=== PATIENT | female | born 1990 | race Native Hawaiian/Other Pacific Islander ===

== ENCOUNTER 2018-12-21 07:52 | Inpatient (IN) | payer MEDICAID ==
[2018-12-21] MEDS ORDERED: Sodium Chloride 0.9% 10 ML Syringe FLUSH PRN (08:01)
[2018-12-21] MEDS ORDERED: Lactated Ringers 1,000 ML IV ONE ×2 (09:00→13:50)
--- NOTE | 2018-12-21 09:08 | PN ---
DATE SEEN: 12/21/2018 SUBJECTIVE: This is a 28-year-old, G3, P2, who was EDC of 12/16, 41 weeks, here for induction. Group B negative. Repeat heart tones are reactive. Cervix is 2 to 3 posterior, -3, 80% effaced. ASSESSMENT: Postdates here for induction, group B negative. PLAN: We did an OB ultrasound for position to make sure the head was down and it was confirmed that it was down and placenta is out of the way to AROM, a little of bit of clear fluid, and we will proceed with a vaginal delivery. We will add Pitocin if we have to. /[id number] PE/FRANK
[2018-12-21] MEDS ORDERED: Calcium Carbonate 500 MG Tab.Chew PO PRN (09:48)
[2018-12-21] MEDS ORDERED: Lactated Ringers 1,000 ML IV SCH ×2 (10:30→14:45)
[2018-12-21] MEDS: Lactated Ringers 1,000 ML IV SCH ×2 (11:33→19:53)
[2018-12-21] MEDS ORDERED: Scopolamine 1.5 MG Transdermal Patch ONE (12:51)
[2018-12-21] MEDS ORDERED: Citric Acid/Sodium Citrate Solution 30 ML Cup ONE (12:51)
[2018-12-21] MEDS ORDERED: Citric Acid/Sodium Citrate Solution 30 ML Cup PO ONE (12:55)
[2018-12-21] MEDS ORDERED: Scopolamine 1.5 MG Transdermal Patch TOP ONE (12:56)
--- NOTE | 2018-12-21 13:01 | PCM.HP ---
<Louann Phan - Last Filed: 12/21/18 12:54> H&P History of Present Illness - General Date of Service: 12/21/18 Admit Problem/Dx: 28 year old, , female admitted to the hospital for induction of labor. She is 40w6d today. She has been feeling baby move. No leakage of fluid or bleeding. Afebrile. GBS negative. AROM at 0830 for clear fluid. Minimal variability with low grade late decelerations since arrival at 0800. Not responding to resuscitation with IV fluids or supplemental oxygen. Source of Information: Patient, Old Records History Limitations: Reports: No Limitations - Related Data Allergies/Adverse Reactions: Allergies Allergy/AdvReac Type Severity Reaction Status Date / Time No Known Allergies Allergy Verified 04/22/18 10:45 Home Medications: Home Meds Doxylamine Succinate [Unisom] 25 mg PO QID #60 tablet 04/22/18 [Rx] Pyridoxine HCl 25 mg PO QID #100 tablet 04/22/18 [Rx] Past Medical History Respiratory History: Reports: Asthma Other Respiratory History: has had asthma in past and has used inhalers Gastrointestinal History: Reports: Hemorrhoids, Other (See Below) Other Gastrointestinal History: heartburn with [employer] History: Reports: Other OB/BYN History: Psychiatric History: Reports: Anxiety - Past Surgical History Dermatological Surgical History: Reports: None Social & Family History - Family History Family Medical History: Noncontributory - Tobacco Use Smoking Status *Q: Former Smoker Packs/Tins Daily: 0.5 Used Tobacco, but Quit: Yes Month/Year Tobacco Last Used: 08/2108 Second Hand Smoke Exposure: Yes - Caffeine Use Caffeine Use: Reports: Coffee, Soda - Recreational Drug Use Recreational Drug Use: Yes Drug Use in Last 12 Months: Yes Recreational Drug Type: Reports: Marijuana/Hashish, Methamphetamine Recreational Drug Use Frequency: Not Used In Over 6 Months H&P Review of Systems - Review of Systems: Review Of Systems: See Below General: Reports: Other (feeling hungry ) HEENT: Reports: No Symptoms Pulmonary: Reports: No Symptoms Cardiovascular: Reports: No Symptoms Gastrointestinal: Reports: No Symptoms Genitourinary: Reports: No Symptoms Musculoskeletal: Reports: No Symptoms Skin: Reports: No Symptoms Psychiatric: Reports: Anxiety Neurological: Reports: No Symptoms Hematologic/Lymphatic: Reports: No Symptoms Exam - Exam Exam: See Below - Vital Signs Vital Signs: Last Vital Signs Temp 36.6 C 12/21/18 09:35 Pulse 87 12/21/18 11:04 Resp BP 142/89 H 12/21/18 09:35 Pulse Ox Weight: 174 lb - Exam Quality Assessment: Supplemental Oxygen General: Alert, Oriented HEENT: Mucosa Moist & Angostura, Pupils Equal, TMs Clear Neck: Supple, Trachea Midline Lungs: Clear to Auscultation, Normal Respiratory Effort Cardiovascular: Regular Rate, Regular Rhythm GI/Abdominal Exam: Normal Bowel Sounds, Soft, Non-Tender, Other ( abdomen) Back Exam: No: CVA Tenderness (R), CVA Tenderness (L) Extremities: Normal Inspection, No Pedal Edema Skin: Warm, Dry, Intact Neuro Extensive - Mental Status: Alert, Oriented x3 Psychiatric: Alert, Normal Affect, Anxious - Problem List (1) Intrauterine SNOMED Code(s): 09845422 ICD Code: Z34.90 - ENCNTR FOR SUPRVSN OF NORMAL , UNSP, UNSP TRIMESTER Status: Acute Current Visit: No Problem List Initiated/Reviewed/Updated: Yes Orders Last 24hrs: Active Orders 24 hr Category Date Time Status Admission Status [Patient Status] [ADT] Routine ADT 12/21/18 08:30 Active Patient Status [ADT] Routine ADT 12/21/18 08:01 Active Communication Order [RC] ASDIRECTED Care 12/21/18 08:01 Active Non Stress Test [RC] Click to Edit Care 12/21/18 08:01 Active Notify Provider Vital Signs [RC] PRN Care 12/21/18 08:05 Active Notify Provider [RC] PRN Care 12/21/18 08:01 Active Vital Signs [RC] PER UNIT ROUTINE Care 12/21/18 08:01 Active OB Ltd 1 or More Fetus [US] Routine Exams 12/21/18 08:06 Taken CBC WITH AUTO DIFF [HEME] Routine Lab 12/21/18 12:44 Ordered TYPE AND SCREEN [BBK] Routine Lab 12/21/18 12:44 Ordered Calcium Carbonate [Tums] Med 12/21/18 09:48 Active 1,000 mg PO Q2H PRN Lactated Ringers [Ringers, Lactated] 1,000 ml Med 12/21/18 11:31 Active IV ASDIRECTED Sodium Chloride 0.9% [Saline Flush] Med 12/21/18 08:01 Active 10 ml FLUSH ASDIRECTED PRN Peripheral IV Insertion Adult [OM.PC] Routine Oth 12/21/18 09:00 Ordered Saline Lock Insert [OM.PC] Routine Oth 12/21/18 08:01 Ordered Resuscitation Status Routine Resus Stat 12/21/18 08:01 Ordered Medication Orders Calcium Carbonate/Glycine (Tums) 1,000 mg PO Q2H PRN PRN Reason: Indigestion Last Admin: 12/21/18 10:53 Dose: 1,000 mg Lactated Ringer's (Ringers, Lactated) 1,000 mls @ 250 mls/hr IV ASDIRECTED CHANDU Last Admin: 12/21/18 11:33 Dose: 250 mls/hr Sodium Chloride (Saline Flush) 10 ml FLUSH ASDIRECTED PRN PRN Reason: Keep Vein Open Last Admin: 12/21/18 10:22 Dose: 10 ml 1. Reviewed our monitoring findings with the patient and her family. Discussed risks and benefits of . Will go ahead with this. <Bladimir Garza - Last Filed: 12/21/18 14:35> H&P History of Present Illness - General Admit Problem/Dx: Admission Diagnosis/Problem Admission Diagnosis/Problem and not yet delivered Exam - Vital Signs Vital Signs: Last Vital Signs Temp 97.8 F 12/21/18 09:35 Pulse 87 12/21/18 11:04 Resp BP 142/89 H 12/21/18 09:35 Pulse Ox - Patient Data Lab Results Last 24 hrs: Laboratory Results - last 24 hr 12/21/18 12/21/18 Range/Units 12:58 12:58 WBC 16.1 H (4.5-12.0) X10-3/uL RBC 3.49 (3.23-5.20) x10(6)uL Hgb 10.6 L (11.5-15.5) g/dL Hct 30.7 (30.0-51.3) % MCV 87.9 (80-96) fL MCH 30.5 (27.7-33.6) pg MCHC 34.6 (32.2-35.4) g/dL RDW 13.2 (11.5-15.5) % Plt Count 288 (125-369) X10(3)uL MPV 8.2 (7.4-10.4) fL Add Manual Diff Yes Neutrophils % (Manual) 88 H (46-82) % Lymphocytes % (Manual) 10 L (13-37) % Monocytes % (Manual) 1 L (4-12) % Eosinophils % (Manual) 1 (0-5) % Blood Type O POSITIVE Gel Antibody Screen Negative Result Diagrams: 12/21/18 12:58 - Problem List (1) distress SNOMED Code(s): 901622265 ICD Code: [id number] - Status: Acute Current Visit: Yes (2) Intrauterine SNOMED Code(s): 70506643 ICD Code: Z34.90 - ENCNTR FOR SUPRVSN OF NORMAL , UNSP, UNSP TRIMESTER Status: Acute Current Visit: No Problem List Initiated/Reviewed/Updated: Yes Orders Last 24hrs: Active Orders 24 hr Category Date Time Status Admission Status [Patient Status] [ADT] Routine ADT 12/21/18 08:30 Active Patient Status [ADT] Routine ADT 12/21/18 08:01 Active Communication Order [RC] ASDIRECTED Care 12/21/18 08:01 Active Communication Order [RC] ASDIRECTED Care 12/21/18 14:28 Active Communication Order [RC] ASDIRECTED Care 12/21/18 14:28 Active Communication Order [RC] ASDIRECTED Care 12/21/18 14:28 Active Non Stress Test [RC] Click to Edit Care 12/21/18 08:01 Active Intake and Output [RC] Q4HR Care 12/21/18 14:28 Active Notify Provider Vital Signs [RC] PRN Care 12/21/18 08:05 Active Notify Provider [RC] PRN Care 12/21/18 08:01 Active Oxygen Therapy [RC] PRN Care 12/21/18 14:28 Active Pasero Opioid Induced Sedation [RC] ASDIRECTED Care 12/21/18 14:28 Active Vital Signs [RC] PER UNIT ROUTINE Care 12/21/18 08:01 Active OB Ltd 1 or More Fetus [US] Routine Exams 12/21/18 08:06 Taken PATIENT RETYPE [BBK] Routine Lab 12/21/18 12:58 Results TYPE AND SCREEN [BBK] Routine Lab 12/21/18 12:58 Results Calcium Carbonate [Tums] Med 12/21/18 09:48 Active 1,000 mg PO Q2H PRN Ketorolac [Toradol] Med 12/21/18 14:27 Ordered 15 mg IVPUSH Q6H PRN Lactated Ringers [Ringers, Lactated] 1,000 ml Med 12/21/18 11:31 Active IV ASDIRECTED Morphine Med 12/21/18 14:27 Ordered 2 mg IVPUSH Q1H PRN Nalbuphine [Nubain] Med 12/21/18 14:27 Ordered 10 mg IVPUSH Q1H PRN Naloxone [Narcan] Med 12/21/18 14:27 Ordered 0.1 mg IVPUSH ONETIME PRN Ondansetron [Zofran] Med 12/21/18 14:27 Ordered 4 mg IVPUSH Q6H PRN Sodium Chloride 0.9% [Saline Flush] Med 12/21/18 08:01 Active 10 ml FLUSH ASDIRECTED PRN diphenhydrAMINE [Benadryl] Med 12/21/18 14:27 Ordered 25 mg IV ONETIME PRN Do Not Administer Anticoagulant Meds [AST] Per Unit Oth 12/21/18 14:28 Ordered Routine Do Not Administer IV Narcs or Sedatives [AST] Per Unit Oth 12/21/18 14:28 Ordered Routine Peripheral IV Insertion Adult [OM.PC] Routine Oth 12/21/18 09:00 Ordered Saline Lock Insert [OM.PC] Routine Oth 12/21/18 08:01 Ordered Resuscitation Status Routine Resus Stat 12/21/18 08:01 Ordered Medication Orders Calcium Carbonate/Glycine (Tums) 1,000 mg PO Q2H PRN PRN Reason: Indigestion Last Admin: 12/21/18 10:53 Dose: 1,000 mg Diphenhydramine HCl (Benadryl) 25 mg IV ONETIME PRN PRN Reason: Pruritus Lactated Ringer's (Ringers, Lactated) 1,000 mls @ 250 mls/hr IV ASDIRECTED CHANDU Last Admin: 12/21/18 11:33 Dose: 250 mls/hr Ketorolac Tromethamine (Toradol) 15 mg IVPUSH Q6H PRN PRN Reason: Pain Stop: 12/26/18 14:29 Morphine Sulfate (Morphine) 2 mg IVPUSH Q1H PRN PRN Reason: Pain Nalbuphine HCl (Nubain) 10 mg IVPUSH Q1H PRN PRN Reason: Pruritus Naloxone HCl (Narcan) 0.1 mg IVPUSH ONETIME PRN PRN Reason: Oversedation Ondansetron HCl (Zofran) 4 mg IVPUSH Q6H PRN PRN Reason: Nausea/Vomiting Sodium Chloride (Saline Flush) 10 ml FLUSH ASDIRECTED PRN PRN Reason: Keep Vein Open Last Admin: 12/21/18 10:22 Dose: 10 ml Assessment/Plan Comment:: Attest I saw this pt and examined here.
[2018-12-21] MEDS ORDERED: ceFAZolin 1 GM Vial IV ONE (13:45)
[2018-12-21] MEDS ORDERED: Morphine PF 10 MG/10 ML SDV ONE (13:50)
[2018-12-21] MEDS ORDERED: ePHEDrine 50 MG/ML SDV IV ONE (13:50)
[2018-12-21] MEDS ORDERED: Oxytocin 10 Units/1 ML SDV IV ONE (13:50)
[2018-12-21] MEDS ORDERED: Ondansetron 4 MG/2 ML SDV IVPUSH PRN (14:27)
[2018-12-21] MEDS ORDERED: Naloxone 0.4 MG/ML SDV IVPUSH PRN ×2 (14:27→14:42)
[2018-12-21] MEDS ORDERED: Nalbuphine 10 MG/1 ML Vial IVPUSH PRN (14:27)
[2018-12-21] MEDS ORDERED: diphenhydrAMINE 50 MG/ML SDV IV PRN (14:27)
[2018-12-21] MEDS ORDERED: ePHEDrine 50 MG/ML SDV IVPUSH PRN (14:42)
[2018-12-21] MEDS ORDERED: diphenhydrAMINE 50 MG/ML SDV IVPUSH PRN (14:42)
[2018-12-21] MEDS: Morphine 2 MG/ML Syringe IVPUSH PRN ×2 (15:50→22:33)
[2018-12-21] MEDS: Ketorolac 15 MG/ML SDV IVPUSH PRN (21:13)
[2018-12-22] MEDS: Lactated Ringers 1,000 ML IV SCH ×2 (00:10→04:03)
--- NOTE | 2018-12-22 01:14 | OR ---
DATE OF OPERATION: 12/21/2018 SURGEON: Rainer Askew MD Insulation Sprayer: Dr Garza PREOPERATIVE DIAGNOSES: 1. Intrauterine at 41 weeks. 2. Nonreassuring heart tones. POSTOPERATIVE DIAGNOSES: 1. Intrauterine at 41 weeks. 2. Nonreassuring heart tones due to thick meconium. PROCEDURE PERFORMED: Primary lower uterine segment section. ANESTHESIA: Spinal. ESTIMATED BLOOD LOSS: 600 mL. COMPLICATIONS: None. FINDINGS: A female in cephalic presentation. scores of 5 and 6 at 1 and 5 minutes. There was also thick meconium stained amniotic fluid noted. INDICATION: This is a 28-year-old female, who was admitted to Dr. Banuelos for induction of labor. Due to nonreassuring heart tones and decreased variability, I was called for a section. PROCEDURE IN DETAIL: The patient was taken to the OR, where spinal anesthesia was administered without difficulty. She was prepped and draped in the usual sterile fashion in the dorsal supine position with a leftward tilt. A Pfannenstiel incision was made with a scalpel and carried through to the underlying layer of fascia using the Bovie. The fascia was incised in the midline and extended laterally using Juárez scissors. Paty clamps were used to elevate the superior and inferior aspect of the fascial incision and underlying rectus fascia were the muscles were dissected off bluntly and using the Juárez scissors. The rectus muscles were dissected in midline. The peritoneum was identified and entered using Metzenbaum scissors. The bladder blade was inserted and the vesicouterine peritoneum was identified and extended laterally using Metzenbaum scissors. The incision was extended laterally and the bladder flap was created digitally. After that, the bladder blade was reinserted. The lower uterine segment was incised in a transverse fashion using the scalpel and extended using my fingers and manual traction. Thick meconium fluid was noted. The infant was subsequently delivered. The nose and mouth were suctioned with a bulb. The cord was cut and clamped. The infant was handed to the waiting nursery nurse. The placenta was delivered spontaneously intact with 3-vessel cord noted. The uterus was exteriorized and cleared of all clots and debris. The uterine incision was then repaired using 2 layers of 0 chromic sutures. Hemostasis was visualized. After irrigation, the risk rectus fascia was closed in a continuous fashion and thereafter the subcutaneous tissue and skin was closed with a 3-0 running stitch with no complications. The count for the instruments, sponges, and laps were correct x3. The baby was initially noted to be floppy after delivery with low tone but it was handed over to the nurses for resuscitation. The patient was stable at the completion of the procedure and subsequently was transferred to the recovery room in stable condition. Please note that she also received 2 g of Ancef prior to the incision. In addition, the risks and benefits of the procedure was discussed before the surgery was performed, and she accepted and asked to proceed. /[id number] PUJA/FRANK GONZALES
[2018-12-22] MEDS: Ketorolac 15 MG/ML SDV IVPUSH PRN (06:02)
--- NOTE | 2018-12-22 08:18 | PCM.PNPP ---
- General Info Date of Service: 12/22/18 Subjective Update: Patient's baby was transferred to [place]. She want s to go home this am. Pain is better.Bleeding is less. No fever,.Output is adequate Functional Status: Reports: Pain Controlled, Tolerating Diet - Review of Systems HEENT: Reports: No Symptoms Pulmonary: Reports: No Symptoms Cardiovascular: Reports: No Symptoms Gastrointestinal: Reports: No Symptoms Genitourinary: Reports: No Symptoms - Patient Data Vital Signs - Most Recent: Last Vital Signs Temp 99 F 12/22/18 00:00 Pulse 82 12/22/18 04:00 Resp 18 12/22/18 04:00 BP 108/68 12/22/18 04:00 Pulse Ox 96 12/22/18 04:00 Weight - Most Recent: 78.925 kg I&O - Last 24 Hours: Intake & Output 12/21/18 12/22/18 12/22/18 22:59 06:59 14:59 Intake Total 400 5100 Output Total 1900 2550 Balance -1500 2550 Lab Results - Last 24 Hours: Laboratory Results - last 24 hr 12/21/18 12/21/18 12/22/18 Range/Units 12:58 12:58 05:51 WBC 16.1 H 12.4 H (4.5-12.0) X10-3/uL RBC 3.49 2.93 L (3.23-5.20) x10(6)uL Hgb 10.6 L 8.9 L (11.5-15.5) g/dL Hct 30.7 25.9 L (30.0-51.3) % MCV 87.9 88.2 (80-96) fL MCH 30.5 30.4 (27.7-33.6) pg MCHC 34.6 34.4 (32.2-35.4) g/dL RDW 13.2 13.4 (11.5-15.5) % Plt Count 288 268 (125-369) X10(3)uL MPV 8.2 8.1 (7.4-10.4) fL Neut % (Auto) 73.2 (46-82) % Lymph % (Auto) 19.2 (13-37) % [place] % (Auto) 6.1 (4-12) % Eos % (Auto) 1 (1.0-5.0) % Baso % (Auto) 1 (0-2) % Neut # (Auto) 9.0 H (1.6-8.3) # Lymph # (Auto) 2.4 (0.6-5.0) # Hays # (Auto) 0.8 (0.0-1.3) # Eos # (Auto) 0.1 (0.0-0.8) # Baso # (Auto) 0.1 (0.0-0.2) # Add Manual Diff Yes Neutrophils % (Manual) 88 H (46-82) % Lymphocytes % (Manual) 10 L (13-37) % Monocytes % (Manual) 1 L (4-12) % Eosinophils % (Manual) 1 (0-5) % Blood Type O POSITIVE Gel Antibody Screen Negative Med Orders - Current: Current Medications Calcium Carbonate/Glycine (Tums) 1,000 mg PO Q2H PRN PRN Reason: Indigestion Last Admin: 12/21/18 10:53 Dose: 1,000 mg Diphenhydramine HCl (Benadryl) 25 mg IVPUSH Q6H PRN PRN Reason: Itching or Nausea Ephedrine Sulfate (Ephedrine Sulfate) 5 mg IVPUSH ASDIRECTED PRN PRN Reason: Other Lactated Ringer's (Ringers, Lactated) 1,000 mls @ 250 mls/hr IV ASDIRECTED [facility] Last Admin: 12/22/18 04:03 Dose: 250 mls/hr Lactated Ringer's (Ringers, Lactated) 1,000 mls @ 250 mls/hr IV ASDIRECTED [facility] Last Admin: 12/21/18 14:45 Dose: 250 mls/hr Ketorolac Tromethamine (Toradol) 15 mg IVPUSH Q6H PRN PRN Reason: Pain Stop: 12/26/18 14:29 Last Admin: 12/22/18 06:02 Dose: 15 mg Morphine Sulfate (Morphine) 2 mg IVPUSH Q1H PRN PRN Reason: Pain Last Admin: 12/21/18 22:33 Dose: 2 mg Nalbuphine HCl (Nubain) 10 mg IVPUSH Q1H PRN PRN Reason: Pruritus Naloxone HCl (Narcan) 0.1 mg IVPUSH ONETIME PRN PRN Reason: Respiratory Depression Ondansetron HCl (Zofran) 4 mg IVPUSH Q6H PRN PRN Reason: Nausea/Vomiting Sodium Chloride (Saline Flush) 10 ml FLUSH ASDIRECTED PRN PRN Reason: Keep Vein Open Last Admin: 12/21/18 10:22 Dose: 10 ml Discontinued Medications Citric Acid/Sodium Citrate (Bicitra Solution) Confirm Administered Dose 30 ml .ROUTE .STK-MED ONE Stop: 12/21/18 12:52 Last Admin: 12/21/18 18:38 Dose: Not Given Citric Acid/Sodium Citrate (Bicitra Solution) 30 ml PO ONETIME ONE Stop: 12/21/18 12:56 Last Admin: 12/21/18 13:10 Dose: 30 ml Diphenhydramine HCl (Benadryl) 25 mg IV Q3H PRN PRN Reason: Pruritus Lactated Ringer's (Ringers, Lactated) 1,000 mls @ 999 mls/hr IV BOLUS ONE Stop: 12/21/18 10:00 Last Admin: 12/21/18 09:10 Dose: 999 mls/hr Lactated Ringer's (Ringers, Lactated) 1,000 mls @ 999 mls/hr IV ASDIRECTED CHANDU Last Infusion: 12/21/18 11:32 Dose: 250 mls/hr Naloxone HCl (Narcan) 0.1 mg IVPUSH ONETIME PRN PRN Reason: Oversedation Scopolamine (Transderm-Scop) Confirm Administered Dose 1.5 mg .ROUTE .STK-MED ONE Stop: 12/21/18 12:52 Last Admin: 12/21/18 18:38 Dose: Not Given Scopolamine (Transderm-Scop) 1.5 mg TOP ONETIME ONE Stop: 12/21/18 12:57 Last Admin: 12/21/18 13:10 Dose: 1.5 mg - Infant Interaction Disposition, : Not Applicable Support Person: Significant Other - Recovery Exam Fundal Tone: Firm Fundal Level: At Umbilicus Fundal Placement: Midline Lochia Amount: Small Lochia Color: Rubra/Red Perineum Description: Intact, Minimal Bruising/Swelling Bladder Status: Indwelling Catheter in Place Urinary Elimination: Indwelling Catheter - Exam General: Alert Lungs: Clear to Auscultation GI/Abdominal Exam: Soft Skin: Warm Wound/Incisions: Healing Well, Dressing Dry and Intact - Problem List & Annotations (1) care and examination SNOMED Code(s): 583303226, 022480153 Code(s): Z39.2 - ENCOUNTER FOR ROUTINE FOLLOW-UP Status: Acute Current Visit: Yes (2) delivery delivered SNOMED Code(s): 554492082 Code(s): O82 - ENCOUNTER FOR DELIVERY WITHOUT INDICATION Status: Acute Current Visit: Yes - Problem List Review Problem List Initiated/Reviewed/Updated: Yes - My Orders Last 24 Hours: My Active Orders 12/21/18 14:42 Bedrest Bathroom Privileges [RC] ASDIRECTED RT Incentive Spirometry [RC] Q4HWA Vital Signs [RC] 00,04,08,12,16,20 Naloxone [Narcan] 0.1 mg IVPUSH ONETIME PRN diphenhydrAMINE [Benadryl] 25 mg IVPUSH Q6H PRN ePHEDrine [ePHEDrine sulfate] 5 mg IVPUSH ASDIRECTED PRN Assess Lochia [WOMSER] Per Unit Routine Assess Uterine Involution [WOMSER] Per Unit Routine 12/21/18 14:45 Lactated Ringers [Ringers, Lactated] 1,000 ml IV ASDIRECTED 12/21/18 Dinner Clear Liquid Diet [DIET] - Plan Plan:: I will discharge home on [place]. Follow up in 2 weeks.I advised her to go to the ED in [place] if bleeding,pain or any new symptoms
--- NOTE | 2018-12-22 12:59 | DISCH ---
DISCHARGE DATE: 12/22/2018 REASON FOR ADMISSION: Induction of labor. DISCHARGE DIAGNOSES: 1. Primary section. 2. Anemia. 3. care. BRIEF HISTORY AND HOSPITAL COURSE: A 28-year-old, who was admitted for induction of labor at 41 weeks. Due to a nonreassuring heart tones, we did a section yesterday afternoon. The baby was transferred to [place] and eventually to [place]. The mother did well overnight, but she has expressed a strong interest to go and see her baby in [place]. Output, blood pressure, and vital signs have remained stable. I will discharge her home on hydrocodone one tablet q.i.d. p.r.n. 20 tablets, Motrin 600 mg p.o. q.i.d. I also recommend she sees me in 2 weeks in the office. Wound care and postoperative expectations were reviewed with the patient before she left. I spent more than 35 minutes in the discharge of the patient. /[id number] PUJA/FRANK
--- NOTE | 2018-12-27 12:55 | US ---
INDICATION: Evaluate presentation. OB ULTRASOUND FOR POSITION ONLY: Multiple ultrasonic images were obtained with 2-D real time and M-mode technique, 12/21/18, and compared with 04/22/18 examination. A regular heart rate of 155 BPM was noted. A minimal amount of amniotic fluid is present. The position is cephalic with the spine on the maternal right. The placenta is fundal and appears mature. IMPRESSION: Cephalic presentation with spine on the maternal right. MTDD
== END 2018-12-22 10:33 | disposition home or self-care (01) | DRG 788 ==
LOC: FB.OB 07:52 → FB.OBCHECK 07:52 → FB.OB 08:01 → FB.OBCHECK 08:01 → OBSVTOIN 08:30
PROVIDERS: ADMIT Family Medicine; ATTEND Family Medicine
PROC: 10D00Z1 Extraction of Products of Conception, Low, Open Approach (ICD-10-PCS; principal; 2018-12-21)
PROC: 10907ZC Drainage of Amniotic Fluid, Therapeutic from Products of Conception, Via Natural or Artificial Opening (ICD-10-PCS; 2018-12-21)
DX: O76 Abnormality in fetal heart rate and rhythm complicating labor and delivery (principal); O77.0 Labor and delivery complicated by meconium in amniotic fluid; O99.02 Anemia complicating childbirth; O48.0 Post-term pregnancy; Z3A.41 41 weeks gestation of pregnancy; Z37.0 Single live birth
CPT/HCPCS: 01961-QZ; 36415; 76815; 85025; 86850; 86900; 86901; A9270-GY; J0690; J1885; J2270; J2590; J3490; J7120

== ENCOUNTER 2019-12-10 08:31 | Emergency (ER) | payer MEDICAID ==
[2019-12-10] MEDS ORDERED: Ondansetron 4 MG Tab.DIS PO ONE (09:06)
--- NOTE | 2019-12-10 10:00 | EDM.PDOC ---
ED HPI GENERAL MEDICAL PROBLEM - General Chief Complaint: Gastrointestinal Problem Stated Complaint: BLOODY STOOLS Time Seen by Provider: 12/10/19 08:55 Source of Information: Reports: Patient History Limitations: Reports: No Limitations - History of Present Illness INITIAL COMMENTS - FREE TEXT/NARRATIVE: Patient presented to the ED because of bloody diarrhea with associated N/V. There is no abdominal pain,fever,chills. 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 History: Psychiatric History: Reports: Anxiety - Past Surgical History Dermatological Surgical History: Reports: None Social & Family History - Family History Family Medical History: Noncontributory - Tobacco Use Smoking Status *Q: Current Every Day Smoker Years of Tobacco use: 4 Packs/Tins Daily: 0.5 - Caffeine Use Caffeine Use: Reports: Coffee, Soda - Alcohol Use Days Per Week of Alcohol Use: 7 Number of Drinks Per Day: 6 Total Drinks Per Week: 42 - Recreational Drug Use Recreational Drug Use: Yes ED ROS GENERAL - Review of Systems Review Of Systems: See Below Constitutional: Reports: No Symptoms HEENT: Reports: No Symptoms Respiratory: Reports: No Symptoms Cardiovascular: Reports: No Symptoms Endocrine: Reports: No Symptoms GI/Abdominal: Reports: Bloody Stool, Nausea, Vomiting. Denies: Abdominal Pain : Reports: No Symptoms Musculoskeletal: Reports: No Symptoms Skin: Reports: No Symptoms ED EXAM, GI/ABD - Physical Exam Exam: See Below Exam Limited By: No Limitations General Appearance: Alert, No Apparent Distress Ears: Normal External Exam, Normal Canal Nose: Normal Inspection, Normal Mucosa Throat/Mouth: Normal Inspection, Normal Lips, Normal Teeth Head: Atraumatic, Normocephalic Neck: Normal Inspection, Supple, Non-Tender Respiratory/Chest: No Respiratory Distress, Lungs Clear, Normal Breath Sounds Cardiovascular: Normal Peripheral Pulses, Regular Rate, Rhythm, No Edema, No Gallop (Female) Exam: Normal External Exam Rectal (Female) Exam: No: Hemorrhoids, Mass Back Exam: Normal Inspection Extremities: Normal Inspection Course - Vital Signs Text/Narrative:: labs reviewed and discussed with patient Hb-14.2 O/P-pending Cdif-pending Stool Culture-pending Last Recorded V/S: Last Vital Signs Temp 37.1 C 12/10/19 08:52 Pulse 98 12/10/19 08:52 Resp 20 12/10/19 08:52 BP 142/98 H 12/10/19 08:52 Pulse Ox 99 12/10/19 08:52 - Orders/Labs/Meds Orders: Active Orders 24 hr Category Date Time Status C DIFFICILE AG/TOXIN W/REFLEX [RM] Stat Lab 12/10/19 09:01 Ordered H. PYLORI STOOL AG, EIA Stat Lab 12/10/19 09:13 Ordered OVA + PARASITE EXAM Stat Lab 12/10/19 09:01 Ordered STOOL CULTURE Routine Lab 12/10/19 09:01 Ordered Labs: Laboratory Tests 12/10/19 Range/Units 09:22 WBC 5.2 (4.5-12.0) X10-3/uL RBC 4.72 (3.23-5.20) x10(6)uL Hgb 14.2 D (11.5-15.5) g/dL Hct 43.9 D (30.0-51.3) % MCV 93.1 (80-96) fL MCH 30.2 (27.7-33.6) pg MCHC 32.5 (32.2-35.4) g/dL RDW 15.1 (11.5-15.5) % Plt Count 382 H (125-369) X10(3)uL MPV 7.4 (7.4-10.4) fL Neut % (Auto) 49.4 (46-82) % Lymph % (Auto) 37.8 H (13-37) % [place] % (Auto) 6.9 (4-12) % Eos % (Auto) 4 (1.0-5.0) % Baso % (Auto) 2 (0-2) % Neut # (Auto) 2.6 (1.6-8.3) # Lymph # (Auto) 1.9 (0.6-5.0) # [place] # (Auto) 0.4 (0.0-1.3) # Eos # (Auto) 0.2 (0.0-0.8) # Baso # (Auto) 0.1 (0.0-0.2) # Meds: Medications Discontinued Medications Generic Name Dose Route Start Last Admin Trade Name Freq PRN Reason Stop Dose Admin Ondansetron HCl 4 mg 12/10/19 09:06 12/10/19 09:15 Zofran Odt PO 12/10/19 09:07 4 mg ONETIME ONE Administration Departure - Departure Time of Disposition: 09:55 Disposition: Home, Self-Care 01 Condition: Good Clinical Impression: Bloody diarrhea - Discharge Information Prescriptions: Azithromycin [Zithromax] 250 mg PO DAILY #6 tablet Ondansetron [Zofran ODT] 4 mg PO Q4H PRN #5 tab.dis PRN Reason: Nausea Instructions: Bloody Diarrhea Referrals: Bladimir Garza MD [Primary Care Provider] - Forms: ED Department Discharge Additional Instructions: please read discharge instructions on bloody diarrhea increase oral fluids take z-rosalia as directed zofran odt 4 mg every 4 hours as needed for nausea we will call you when the result of stool culture is back Sepsis Event Note - Evaluation Sepsis Screening Result: No Definite Risk - Focused Exam Vital Signs: Vital Signs Temp Pulse Resp BP Pulse Ox 12/10/19 08:52 37.1 C 98 20 142/98 H 99 Date Exam was Performed: 12/10/19 Time Exam was Performed: 10:04 - My Orders Last 24 Hours: My Active Orders 12/10/19 09:01 C DIFFICILE AG/TOXIN W/REFLEX [RM] Stat OVA + PARASITE EXAM Stat STOOL CULTURE Routine 12/10/19 09:13 H. PYLORI STOOL AG, EIA Stat - Assessment/Plan Last 24 Hours: My Active Orders 12/10/19 09:01 C DIFFICILE AG/TOXIN W/REFLEX [RM] Stat OVA + PARASITE EXAM Stat STOOL CULTURE Routine 12/10/19 09:13 H. PYLORI STOOL AG, EIA Stat
== END 2019-12-10 10:20 | disposition home or self-care (01) ==
LOC: FB.ED 08:31
DX: K92.1 Melena (principal); F17.210 Nicotine dependence, cigarettes, uncomplicated
CPT/HCPCS: 36415; 85025; 99284; A9270